=== PATIENT | female | born 1990 | race Hispanic/Latino ===

== ENCOUNTER 2019-06-17 13:43 | Emergency (ER) | payer BC ==
--- OUTSIDE RECORDS SUMMARY | 2019-06-17 13:48 | XMS REPORT ---
:1990 [facility] Address [address] [place] [address] [address] [address] Care Team Providers Name Role Phone DR JIMI AGUSTIN Unavailable Unavailable Problems This patient has no known problems. Allergies, Adverse Reactions, Alerts This patient has no known allergies or adverse reactions. Medications This patient has no known medications. Encounters Start End Encounter Admission Attending Care Care Encounter Date/Time Date/Time Type Type Clinicians Facility Department ID 2018-09-14 2018-09-14 Outpatient LIBBY BARRERA [facility] [id number] 04:03:00 07:00:00 JIMI
[2019-06-17] MEDS ORDERED: FAMOTIDINE 20 MG/2 ML VIAL IV ONE (14:39)
[2019-06-17] MEDS ORDERED: MORPHINE 4 MG/ML SYR ONE ×2 (14:39→15:48)
[2019-06-17] MEDS ORDERED: NA CHLORIDE 0.9% 1,000 ML ONE (14:39)
[2019-06-17] MEDS ORDERED: ONDANSETRON 4 MG/2 ML VIAL ONE (14:39)
[2019-06-17 14:51] LABS: Absolute Lymphocytes (CBC) 0.8 K/uL (0.7-4.9); Basophils % 0.2 % (0-1.3); Hematocrit 45.4 % (36.0-45.0); Lymphocytes % 5.6 % (15.3-44.8); MPV 8.7 fL (7.6-11.3)
--- NOTE | 2019-06-17 15:07 | RAD REPORT ---
EXAM DESCRIPTION: US - Abdomen Exam Limited - 06/17/2019 2:42 pm CLINICAL HISTORY: RUQ pain COMPARISON: No comparisons FINDINGS: The gallbladder demonstrates multiple gallstones. No pericholecystic fluid or gallbladder wall thickening. The common bile duct is mildly prominent measuring 7 mm. The liver demonstrates no findings of intrahepatic biliary dilatation. IMPRESSION: Cholelithiasis. Mildly prominent common bile duct. If the patient has clinical findings suggesting possible choledoch olithiasis, ERCP or MRCP would be suggested.
[2019-06-17 15:10] LABS: Albumin 4.3 g/dL (3.4-5.0); Bilirubin Direct 0.1 mg/dL (0-0.2); Bilirubin Total 0.6 mg/dL (0.2-1.0); Potassium 3.6 mmol/L (3.5-5.1); Protein, Total 9.2 g/dL (6.4-8.2)
[2019-06-17 15:17] LABS: Blood Morphology Comment NOT SEEN (NOT SEEN); Platelet Estimate ADEQ; Urine White Blood Cell Casts OK
--- NOTE | 2019-06-17 15:49 | RAD REPORT ---
EXAM DESCRIPTION: CTAbdomen Pelvis W Contrast - 06/17/2019 3:39 pm CLINICAL HISTORY: Abdominal pain. ABD PAIN COMPARISON: No comparisons TECHNIQUE: Biphasic CT imaging of the abdomen and pelvis was performed with 100 ml non-ionic IV cont rast. All CT scans are performed using dose optimization technique as appropriate and may include automated exposure control or mA/KV adjustment according to patient size. FINDINGS: The lung bases are clear. The liver demonstrates mild fatty infiltration. The spleen, pancreas, adrenal glands and kidneys are within normal limits. No bowel obstruction, free air, free fluid or abscess. 25 mm nonspecific fluid density structure in t he central abdomen may represent a jejunal diverticulum. The appendix is normal. No evidence of sign ificant lymphadenopathy. No suspicious bony findings. IMPRESSION: No acute intra-abdominal or pelvic finding. Mild fatty liver. No significant biliary dilatation.
[2019-06-17] MEDS ORDERED: PIPER/TAZO/NS 3.375gm 3.375 GM/100 ML BAG ONE (15:59)
--- NOTE | 2019-06-17 16:54 | EDPHYS ---
Physician Documentation [facility] Name: Margareth Calderón Age: 28 yrs Sex: Female : 1990 Arrival Date: 06/17/2019 Time: 13:47 Bed 23 Private MD: ED Physician Reinaldo Sheldon HPI: 06/17 18:13 This 28 yrs old Female presents to ER via Ambulatory with complaints of kdr Abdominal Pain. 18:13 The patient presents with abdominal pain in the right upper quadrant. Onset: The kdr symptoms/episode began/occurred suddenly, this morning, at 03:30. The symptoms do not radiate. Associated signs and symptoms: Pertinent positives: nausea and vomiting, Pertinent negatives: chest pain, constipation, diarrhea, dysuria, fever, headache, hematuria, palpitations, shortness of breath, vaginal discharge, vomiting, vomiting blood. The symptoms are described as achy, crampy, intermittent, shooting, steady, Pain resolved after the initial episode but then returned later in the morning when she went to work. Modifying factors: The symptoms are alleviated by nothing, the symptoms are aggravated by coughing, breathing deeply, movement, touching the area. Severity of pain: At its worst the pain was severe incapacitating just prior to arrival, in the emergency department the pain has improved mildly. The patient has not experienced similar symptoms in the past. The patient has not recently seen a physician. 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 - Coronavirus screen:: The patient has NOT traveled to [place] in the past 14 days. The patient has NOT had contact with known/suspected case of Coronavirus? Proceed with normal triage procedures. - Social history:: Smoking status: Patient denies any tobacco usage or history of. - Ebola Screening: : No symptoms or risks identified at this time. ROS: 18:13 Constitutional: Negative for fever, chills, and weight loss, Eyes: Negative for injury, kdr pain, redness, and discharge, ENT: Negative for injury, pain, and discharge, Neck: Negative for injury, pain, and swelling, Cardiovascular: Negative for chest pain, palpitations, and edema, Respiratory: Negative for shortness of breath, cough, wheezing, and pleuritic chest pain, Back: Negative for injury and pain, : Negative for injury, bleeding, discharge, and swelling, MS/Extremity: Negative for injury and deformity, Skin: Negative for injury, rash, and discoloration, Neuro: Negative for headache, weakness, numbness, tingling, and seizure activity. Psych: Negative for depression, anxiety, suicide ideation, homicidal ideation, and hallucinations, Allergy/Immunology: Negative for hives, rash, and allergies, Endocrine: Negative for neck swelling, polydipsia, polyuria, polyphagia, and marked weight changes, Hematologic/Lymphatic: Negative for swollen nodes, abnormal bleeding, and unusual bruising. 18:13 Abdomen/GI: Positive for abdominal pain, nausea and vomiting, nausea, vomiting, Negative for abdominal distension, anorexia, dysphagia, black/tarry stool, rectal pain, rectal bleeding, bowel incontinence. Exam: 18:13 Constitutional: This is a well developed, well nourished patient who is awake, alert, kdr and in no acute distress. Head/Face: Normocephalic, atraumatic. Eyes: Pupils equal round and reactive to light, extra-ocular motions intact. Lids and lashes normal. Conjunctiva and sclera are non-icteric and not injected. Cornea within normal limits. Periorbital areas with no swelling, redness, or edema. Neck: Trachea midline, no thyromegaly or masses palpated, and no cervical lymphadenopathy. Supple, full range of motion without nuchal rigidity, or vertebral point tenderness. No Meningismus. Chest/axilla: Normal chest wall appearance and motion. Nontender with no deformity. No lesions are appreciated. Cardiovascular: Regular rate and rhythm with a normal S1 and S2. No gallops, murmurs, or rubs. Normal PMI, no JVD. No pulse deficits. Respiratory: Lungs have equal breath sounds bilaterally, clear to auscultation and percussion. No rales, rhonchi or wheezes noted. No increased work of breathing, no retractions or nasal flaring. Back: No spinal tenderness. No costovertebral tenderness. Full range of motion. Skin: Warm, dry with normal turgor. Normal color with no rashes, no lesions, and no evidence of cellulitis. MS/ Extremity: Pulses equal, no cyanosis. Neurovascular intact. Full, normal range of motion. Neuro: Awake and alert, GCS 15, oriented to person, place, time, and situation. Cranial nerves II-XII grossly intact. Motor strength 5/5 in all extremities. Sensory grossly intact. Cerebellar exam normal. Normal gait. Psych: Awake, alert, with orientation to person, place and time. Behavior, mood, and affect are within normal limits. 18:13 Abdomen/GI: Inspection: obese Bowel sounds: active, all quadrants, Palpation: soft, moderate abdominal tenderness, in the anterior aspect of left lateral abdomen and left upper quadrant, Indicators: McBurney's point is not tender, Ramey's sign is positive. Vital Signs: 14:06 BP 121 / 80; Pulse 117; Resp 16; Temp 98.2; Pulse Ox 100% on R/A; Weight 83.91 kg; hb Height 5 ft. 3 in. (160.02 cm); Pain 9/10; 15:15 BP 126 / 62; Pulse 94; Resp 18; Pulse Ox 100% on R/A; wh 17:07 BP 126 / 87; Pulse 97; Resp 18; Pulse Ox 100% on R/A; wh 18:15 BP 126 / 79; Pulse 98; Resp 18; Temp 98.2; Pulse Ox 100% on R/A; wh 14:06 Body Mass Index 32.77 (83.91 kg, 160.02 cm) hb MDM: 15:55 Patient medically screened. kdr 18:13 Data reviewed: vital signs, nurses notes, lab test result(s), radiologic studies. kdr Counseling: I had a detailed discussion with the patient and/or guardian regarding: the historical points, exam findings, and any diagnostic results supporting the discharge/admit diagnosis, lab results, radiology results, the need for further work-up and treatment in the hospital. 06/17 14:21 Order name: Basic Metabolic Panel; Complete Time: 15: kdr 06/17 14:21 Order name: CBC with Diff; Complete Time: 15: kdr 06/17 14:21 Order name: Creatinine for Radiology; Complete Time: 15:21 kdr 06/17 14:21 Order name: Hepatic Function; Complete Time: 15:21 kdr 06/17 14:21 Order name: Lipase; Complete Time: 15: kdr 06/17 15:19 Order name: CBC Smear Scan; Complete Time: 15: EDMS 06/17 14:21 Order name: US Abdomen Limited; Complete Time: 17:43 kdr 06/17 14:21 Order name: CT Abd/Pelvis - IV Contrast Only; Complete Time: 17:43 kdr 06/17 14:21 Order name: IV Saline Lock; Complete Time: 14:42 kdr 06/17 14:21 Order name: Labs collected and sent; Complete Time: 14:42 kdr Administered Medications: 14:35 Drug: NS 0.9% 1000 ml Route: IV; Rate: 1 bolus; Site: left antecubital; 15:48 Follow up: Response: No adverse reaction; IV Status: Completed infusion 14:37 Drug: morphine 4 mg Route: IVP; Site: left antecubital; 15:48 Follow up: Response: No adverse reaction; RASS: Alert and Calm (0) 14:39 Drug: Pepcid 20 mg Route: IVP; Site: left antecubital; 15:49 Follow up: Response: No adverse reaction 14:41 Drug: Zofran 4 mg Route: IVP; Site: left antecubital; 15:49 Follow up: Response: No adverse reaction; Nausea is decreased 15:48 Drug: morphine 4 mg Route: IVP; Site: left antecubital; wh 17:06 Follow up: Response: No adverse reaction; Pain is decreased; RASS: Alert and Calm (0) 15:58 Drug: Zosyn 3.375 grams Route: IVPB; Infused Over: 60 mins; Site: left antecubital; 17:07 Follow up: Response: No adverse reaction; IV Status: Completed infusion 17:58 Drug: morphine 2 mg Route: IVP; Site: right antecubital; iw 18:27 Follow up: Response: No adverse reaction; Pain is decreased; RASS: Alert and Calm (0) 18:01 Not Given (Duplicate Order): morphine 1 mg IVP once; RASS on ADMIN: Combtv4, Very iw Agttd3, Agttd2, Rstlss1, AlertClm0, Drwsy-1, Lt Sdtn-2, Mod Sdtn-3, Dp Sdtn-4, UnArsble-5 18:07 CANCELLED (Duplicate Order): morphine 2 mg IVP once; (PAIN>8) RASS on ADMN: Combtv4, iw Very Agttd3, Agttd2, Rstlss1, AlertClm0, Drwsy-1, LtSdtn-2, ModSdtn-3, DpSdtn-4, UnArsble-5 x2 Disposition: 06/17/19 15:55 Transfer ordered to [facility]. Diagnosis are Cholelithiasis, Abdominal and pelvic pain. - Reason for transfer: Higher level of care. - Accepting physician is [facility] GI/Hospitalist. - Condition is Fair. - Problem is new. - Symptoms have improved. Signatures: Dispatcher [employer] EDMS Reinaldo Sheldon MD MD kdr Mary Morales RN RN iw Claire Fox RN RN Garth Chin Corrections: (The following items were deleted from the chart) 18:07 18:01 morphine 2 mg IVP once; (PAIN>8) RASS on ADMN: Combtv4, Very Agttd3, Agttd2, iw Rstlss1, AlertClm0, Drwsy-1, LtSdtn-2, ModSdtn-3, DpSdtn-4, UnArsble-5 x2 ordered. 18:07 18:02 morphine 2 mg IVP once; (PAIN>8) RASS on ADMN: Combtv4, Very Agttd3, Agttd2, iw Rstlss1, AlertClm0, Drwsy-1, LtSdtn-2, ModSdtn-3, DpSdtn-4, UnArsble-5 x2 given. 18:07 18:07 morphine 2 mg IVP once; (PAIN>8) RASS on ADMN: Combtv4, Very Agttd3, Agttd2, iw Rstlss1, AlertClm0, Drwsy-1, LtSdtn-2, ModSdtn-3, DpSdtn-4, UnArsble-5 x2 ordered. 18:28 15:55 06/17/2019 15:55 Transfer ordered to [facility]. Diagnosis is Cholelithiasis; Abdominal and pelvic pain. Reason for transfer: Higher level of care. Accepting physician is [facility] GI/Hospitalist. Condition is Fair. Problem is new. Symptoms have improved. kdr
--- NOTE | 2019-06-17 16:54 | ER ---
Nurse's Notes [facility] Name: Margareth Calderón Age: 28 yrs Sex: Female : 1990 Arrival Date: 06/17/2019 Time: 13:47 Bed 23 Private MD: Diagnosis: Cholelithiasis;Abdominal and pelvic pain Presentation: 06/17 14:03 Presenting complaint: She woke at 0230 with substernal chest pain, now pain has moved hb to RUQ and radiates to right mid back. Also c/o nausea. Transition of care: patient was not received from another setting of care. Onset of symptoms was June 17, 2019. Risk Assessment: Do you want to hurt yourself or someone else? Patient reports no desire to harm self or others. Care prior to arrival: DayQuil at 0800. 14:03 Method Of Arrival: Ambulatory hb 14:03 Acuity: MIRELA 3 hb 14:10 Initial Sepsis Screen: Does the patient meet any 2 criteria? HR > 90 bpm. Does the patient have a suspected source of infection? Yes: Acute abdominal pain. 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 - Coronavirus screen:: The patient has NOT traveled to [place] in the past 14 days. The patient has NOT had contact with known/suspected case of Coronavirus? Proceed with normal triage procedures. - Social history:: Smoking status: Patient denies any tobacco usage or history of. - Ebola Screening: : No symptoms or risks identified at this time. Screenin:10 Abuse screen: Denies threats or abuse. Denies injuries from another. Nutritional screening: No deficits noted. Tuberculosis screening: No symptoms or risk factors identified. Fall Risk None identified. Assessment: 14:10 General: Appears in no apparent distress. Behavior is calm, cooperative, appropriate for age. Pain: Complains of pain in right upper quadrant and right lower quadrant Pain does not radiate. Pain currently is 8 out of 10 on a pain scale. Quality of pain is described as sharp, Pain began 1 day ago. Neuro: Level of Consciousness is awake, alert, obeys commands, Oriented to person, place, time, situation, Appropriate for age. Cardiovascular: Heart tones S1 S2. Respiratory: Airway is patent Respiratory effort is even, unlabored, Respiratory pattern is regular, symmetrical, Breath sounds are clear bilaterally. GI: Abdomen is flat, non-distended, Bowel sounds present X 4 quads. Abd is soft Abdomen is tender to palpation in right upper quadrant and right lower quadrant. : No signs and/or symptoms were reported regarding the genitourinary system. EENT: No signs and/or symptoms were reported regarding the EENT system. Derm: Skin is intact, is healthy with good turgor, Skin is pink, warm \T\ dry. normal. Musculoskeletal: Circulation, motion, and sensation intact. 15:12 Reassessment: Patient appears in no apparent distress at this time. No changes from previously documented assessment. Patient and/or family updated on plan of care and expected duration. Pain level reassessed. 16:30 Reassessment: Patient appears in no apparent distress at this time. No changes from previously documented assessment. Patient and/or family updated on plan of care and expected duration. Pain level reassessed. Patient is alert, oriented x 3, equal unlabored respirations, skin warm/dry/pink. MD explained POC need for transfer for higher level of care Patient states feeling better. 17:45 Reassessment: Report given to Ms. Francis NARAYAN. 17:55 Reassessment: Patient appears in no apparent distress at this time. Patient and/or iw family updated on plan of care and expected duration. Pain level reassessed. Patient is alert, oriented x 3, equal unlabored respirations, skin warm/dry/pink. pt c/o headache and abd pain , notified, new orders given, pt medicated with 2 mg morphine IVP,awaiting EMS transport to [facility]. Vital Signs: 14:06 BP 121 / 80; Pulse 117; Resp 16; Temp 98.2; Pulse Ox 100% on R/A; Weight 83.91 kg; hb Height 5 ft. 3 in. (160.02 cm); Pain 9/10; 15:15 BP 126 / 62; Pulse 94; Resp 18; Pulse Ox 100% on R/A; wh 17:07 BP 126 / 87; Pulse 97; Resp 18; Pulse Ox 100% on R/A; wh 18:15 BP 126 / 79; Pulse 98; Resp 18; Temp 98.2; Pulse Ox 100% on R/A; wh 14:06 Body Mass Index 32.77 (83.91 kg, 160.02 cm) hb ED Course: 13:47 Patient arrived in ED. mr 13:50 Reinaldo Sheldon MD is Attending Physician. kdr 14:05 Triage completed. hb 14:06 Arm band placed on. hb 14:10 Patient has correct armband on for positive identification. Bed in low position. Call wh light in reach. Side rails up X 1. Pulse ox on. NIBP on. 14:21 Garth Chin is Primary Nurse. wh 14:30 Inserted saline lock: 20 gauge in left antecubital area, using aseptic technique. Blood wh collected. 14:50 US Abdomen Limited In Process Unspecified. EDMS 15:42 CT Abd/Pelvis - IV Contrast Only In Process Unspecified. EDMS 18:27 No provider procedures requiring assistance completed. Patient transferred, IV remains wh in place. Administered Medications: 14:35 Drug: NS 0.9% 1000 ml Route: IV; Rate: 1 bolus; Site: left antecubital; 15:48 Follow up: Response: No adverse reaction; IV Status: Completed infusion 14:37 Drug: morphine 4 mg Route: IVP; Site: left antecubital; 15:48 Follow up: Response: No adverse reaction; RASS: Alert and Calm (0) 14:39 Drug: Pepcid 20 mg Route: IVP; Site: left antecubital; 15:49 Follow up: Response: No adverse reaction 14:41 Drug: Zofran 4 mg Route: IVP; Site: left antecubital; 15:49 Follow up: Response: No adverse reaction; Nausea is decreased 15:48 Drug: morphine 4 mg Route: IVP; Site: left antecubital; 17:06 Follow up: Response: No adverse reaction; Pain is decreased; RASS: Alert and Calm (0) 15:58 Drug: Zosyn 3.375 grams Route: IVPB; Infused Over: 60 mins; Site: left antecubital; 17:07 Follow up: Response: No adverse reaction; IV Status: Completed infusion 17:58 Drug: morphine 2 mg Route: IVP; Site: right antecubital; iw 18:27 Follow up: Response: No adverse reaction; Pain is decreased; RASS: Alert and Calm (0) 18:01 Not Given (Duplicate Order): morphine 1 mg IVP once; RASS on ADMIN: Combtv4, Very iw Agttd3, Agttd2, Rstlss1, AlertClm0, Drwsy-1, Lt Sdtn-2, Mod Sdtn-3, Dp Sdtn-4, UnArsble-5 18:07 CANCELLED (Duplicate Order): morphine 2 mg IVP once; (PAIN>8) RASS on ADMN: Combtv4, iw Very Agttd3, Agttd2, Rstlss1, AlertClm0, Drwsy-1, LtSdtn-2, ModSdtn-3, DpSdtn-4, UnArsble-5 x2 Outcome: 15:55 ER care complete, transfer ordered by . [facility] 18:27 Transferred by ground EMS to [facility], Transfer form completed. X-rays sent w/ patient. Note: Report given to [facility] and Ms Francis NARAYAN 18:27 Condition: stable 18:27 Instructed on the need for transfer. 18:28 Patient left the ED. Signatures: Dispatcher [employer] EDMS Reinaldo Sheldon MD MD [facility], Ginny mr Mary Morales RN RN Claire Fox RN RN Garth Chin Corrections: (The following items were deleted from the chart) 15:14 14:10 Initial Sepsis Screen: Does the patient meet any 2 criteria? No. Patient's initial sepsis screen is negative. Does the patient have a suspected source of infection? Yes: Acute abdominal pain 18:07 18:01 morphine 2 mg IVP in right antecubital iw
[2019-06-17] MEDS ORDERED: MORPHINE 2 MG/ML SYR ONE (18:00)
[2019-06-17 18:55] VITALS: TEMP 98.2; O2SAT 100
[2019-06-17 18:59] VITALS: BP 126/79
== END 2019-06-17 18:28 | disposition short-term general hospital (02) ==
LOC: ER 13:43
DX: K80.20 Calculus of gallbladder without cholecystitis without obstruction (principal); R10.2 Pelvic and perineal pain; Z88.5 Allergy status to narcotic agent
CPT/HCPCS: 96365; 96361; 85025; 80048; 36415; 80076; 83690; 74177; 76705; 96375; 99285; Q9967; J2543; J2270; J7030; J2405

== ENCOUNTER 2019-07-09 22:00 | Emergency (ER) | payer BC ==
--- OUTSIDE RECORDS SUMMARY | 2019-07-09 22:04 | XMS REPORT ---
:1990 [facility] Address [address] [place] [address] [address]. [address] [place] [address] Care Team Providers Name Role Phone MONITINO VALLE BRET Unavailable Unavailable DR JIMI AGUSTIN Unavailable Unavailable Problems This patient has no known problems. Allergies, Adverse Reactions, Alerts This patient has no known allergies or adverse reactions. Medications This patient has no known medications. Encounters Start End Encounter Admission Attending Care Care Encounter Date/Time Date/Time Type Type Clinicians Facility Department ID 2018-09-14 2018-09-14 Outpatient C [facility] [id number] 04:03:00 07:00:00 JIMI Results Test Description Test Time Test Comments Text Results Atomic Results Result Comments BLOOD CULTURE 2019-06-23 07:00:00 Test Item Value Reference Range Comments CULTURE (BEAKER) (test wqqm=4831) No growth in 5 days BLOOD [id number] 07:00:00 Test Item Value Reference Range Comments CULTURE (BEAKER) (test oyul=5230) No growth in 5 days TISSUE [id number] 17:22:00Surgical Pathology Report Case: [id number] Authorizing Provider: Carin Hays MD Collected: 06/19/2019 1416 Ordering Location: [facility] PERIOPERATIVE Received: 06/19/2019 1554 SERVICES Pathologist: Izzy Benson MD Specimen: Gallbladder GALLBLADDER,LAPAROSCOPIC CHOLECYSTECTOMY: - CHRONIC CHOLECYSTITIS - CHOLELITHIASIS - CHOLESTEROLOSIS - CYSTIC DUCT MARGIN, UNREMARKABLE - NO DYSPLASIA OR MALIGNANCY SEEN Signing Pathologist Direct Phone Line: [phone] at 5: 22 [id number] and postoperative diagnosis: Calculous cholecystitis Gallbladder Specimen A is received labeled with the patient's name, accession number, and "gallbladder. Received in formalin is a 7.2 x 2.8 x 1.5 cm intact gallbladder with 1.0 cm in length x 0.7 cm in diameter cystic duct. No lymph nodes are adherent to the cystic duct neck. The serosal surface is bright-pink, smooth with punctate areas of hemorrhage.On opening, the lumen contains approximately 10 mL of brown, viscous bile and numerous yellow bosselated, ovoid and crushable calculi ranging from less than 0.1 cm to 0.4 cm in greatest dimension. The mucosa is bright-brown and velvety. The thickness of the wall measures 0.1 cm. Numerous calculiare present within the cystic duct. Roadway Designer sections submitted. Ink code: Cystic duct blue; hepatic surface black.Section code: A1 cystic duct and gallbladder wall. A2 gallbladder wall. LY/bc PERFORMEDPOCT-GLUCOSE [id number] 09:32:00 Test Item Value Reference Range Comments POC-GLUCOSE METER (BEAKER) 99 mg/dL 70-110 : TESTED AT [address] (test yzvr=8562) [facility], [id number]: Sexual Abuse Counsellor/Director Plans [id number] for GREGORY, BIANCA POCT-GLUCOSE [id number] 09:27:00 Test Item Value Reference Range Comments POC-GLUCOSE METER (BEAKER) 107 mg/dL 70-110 : TESTED AT [address] (test kazr=0116) [facility], [id number]: Sexual Abuse Counsellor/Director Plans [id number] for GREGORY, BIANCA HEPATIC FUNCTION [id number] 05:13:00 Test Item Value Reference Range Comments TOTAL PROTEIN (BEAKER) (test dnvk=175) 6.8 gm/dL 6.0-8.3 ALBUMIN (BEAKER) (test uxrh=4134) 3.7 g/dL 3.5-5.0 BILIRUBIN TOTAL (BEAKER) (test vqae=459) 0.8 mg/dL 0.2-1.2 BILIRUBIN DIRECT (BEAKER) (test athn=705) 0.5 mg/dL 0.1-0.5 ALKALINE PHOSPHATASE (BEAKER) (test tlfl=982) 122 U/L 40-150 AST (SGOT) (BEAKER) (test uihf=857) 319 U/L 5-34 ALT (SGPT) (BEAKER) (test eggj=373) 725 U/L 6-55 Sexual Abuse Counsellor LEONIDAS - BHARTI LBASIC METABOLIC [id number] 05:13:00 Test Item Value Reference Range Comments SODIUM (BEAKER) (test 132 meq/L 136-145 hkja=376) POTASSIUM (BEAKER) (test 4.2 meq/L 3.5-5.1 ktfx=538) CHLORIDE (BEAKER) (test 104 meq/L 98-107 ftdk=201) CO2 (BEAKER) (test 20 meq/L 22-29 rxwr=291) BLOOD UREA NITROGEN 6 mg/dL 7-21 (BEAKER) (test whye=253) CREATININE (BEAKER) (test 0.66 mg/dL 0.57-1.25 ikjg=786) GLUCOSE RANDOM (BEAKER) 106 mg/dL 70-105 (test kgee=919) CALCIUM (BEAKER) (test 8.8 mg/dL 8.4-10.2 zetg=236) EGFR (BEAKER) (test 105 mL/min/1.73 sq m ESTIMATED GFR IS NOT posb=3282) ACCURATE CREATININE CLEARANCE IN PREDICTING GLOMERULAR FILTRATION RATE. ESTIMATED GFR IS NOT APPLICABLE FOR DIALYSIS PATIENTS. Sexual Abuse Counsellor ID - BHARTI LCBC W/PLT COUNT & AUTO [id number] 04:20:00 Test Item Value Reference Range Comments WHITE BLOOD CELL COUNT (BEAKER) (test uyyj=009) 9.6 K/ L 3.5-10.5 RED BLOOD CELL COUNT (BEAKER) (test uevq=805) 4.30 M/ L 3.93-5.22 HEMOGLOBIN (BEAKER) (test fwdu=093) 12.3 GM/DL 11.2-15.7 HEMATOCRIT (BEAKER) (test vtqu=154) 37.7 % 34.1-44.9 MEAN CORPUSCULAR VOLUME (BEAKER) (test mobf=945) 87.7 fL 79.4-94.8 MEAN CORPUSCULAR HEMOGLOBIN (BEAKER) (test 28.6 pg 25.6-32.2 symr=529) MEAN CORPUSCULAR HEMOGLOBIN CONC (BEAKER) (test 32.6 GM/DL 32.2-35.5 yude=705) RED CELL DISTRIBUTION WIDTH (BEAKER) (test 12.6 % 11.7-14.4 jioq=396) PLATELET COUNT (BEAKER) (test mwze=918) 281 K/CU MM 150-450 MEAN PLATELET VOLUME (BEAKER) (test fecd=404) 10.0 fL 9.4-12.3 NUCLEATED RED BLOOD CELLS (BEAKER) (test 0 /100 WBC 0-0 zwuj=060) NEUTROPHILS RELATIVE PERCENT (BEAKER) (test 82 % tter=579) LYMPHOCYTES RELATIVE PERCENT (BEAKER) (test 10 % livm=602) MONOCYTES RELATIVE PERCENT (BEAKER) (test 8 % jxht=824) EOSINOPHILS RELATIVE PERCENT (BEAKER) (test 0 % pdym=966) BASOPHILS RELATIVE PERCENT (BEAKER) (test 0 % cjgh=227) NEUTROPHILS ABSOLUTE COUNT (BEAKER) (test 7.82 K/ L 1.56-6.13 ldvs=298) LYMPHOCYTES ABSOLUTE COUNT (BEAKER) (test 0.97 K/ L 1.18-3.74 krin=202) MONOCYTES ABSOLUTE COUNT (BEAKER) (test 0.73 K/ L 0.24-0.36 pwyu=640) EOSINOPHILS ABSOLUTE COUNT (BEAKER) (test 0.00 K/ L 0.04-0.36 lerc=482) BASOPHILS ABSOLUTE COUNT (BEAKER) (test 0.02 K/ L 0.01-0.08 tsga=068) IMMATURE GRANULOCYTES-RELATIVE PERCENT (BEAKER) 0 % 0-1 (test wgoe=1691) FL, FLUORO, NON-SPECIFIC, UP TO 1 [id number] 14:32:00Reason for exam:-> CholangiogramFINAL REPORT A fluoroscopic unit was utilized for a procedure performed in the operating room. No interpretation was requested. Please refer to the operative report regarding findings. Please refer to PACS for patient radiation dose information. Signed: JR River Robert MDReport Verified Date/Time: 06/19/2019 14:32:42 Reading Location: [facility] Radiology Reading Room POCT-GLUCOSE [id number] 07:47:00 Test Item Value Reference Range Comments POC-GLUCOSE METER (BEAKER) 90 mg/dL 70-110 : TESTED AT [facility] [address] [place] [address] (test ugji=2464) [facility], [address]: Sexual Abuse Counsellor/Director Plans [id number] for [place] HEPATIC FUNCTION [id number] 04:53:00 Test Item Value Reference Range Comments TOTAL PROTEIN (BEAKER) (test fxpa=834) 6.9 gm/dL 6.0-8.3 ALBUMIN (BEAKER) (test tmxh=1287) 3.8 g/dL 3.5-5.0 BILIRUBIN TOTAL (BEAKER) (test epdx=298) 1.3 mg/dL 0.2-1.2 BILIRUBIN DIRECT (BEAKER) (test szpc=747) 1.0 mg/dL 0.1-0.5 ALKALINE PHOSPHATASE (BEAKER) (test sdrh=652) 125 U/L 40-150 AST (SGOT) (BEAKER) (test wdis=832) 469 U/L 5-34 ALT (SGPT) (BEAKER) (test fpao=130) 624 U/L 6-55 Sexual Abuse Counsellor ID - DBBASIC METABOLIC [id number] 04:53:00 Test Item Value Reference Range Comments SODIUM (BEAKER) (test 136 meq/L 136-145 gmwv=699) POTASSIUM (BEAKER) (test 3.9 meq/L 3.5-5.1 irow=943) CHLORIDE (BEAKER) (test 105 meq/L 98-107 kpda=724) CO2 (BEAKER) (test 23 meq/L 22-29 xbda=055) BLOOD UREA NITROGEN 7 mg/dL 7-21 (BEAKER) (test ubrl=734) CREATININE (BEAKER) (test 0.70 mg/dL 0.57-1.25 miku=554) GLUCOSE RANDOM (BEAKER) 103 mg/dL 70-105 (test glsp=967) CALCIUM (BEAKER) (test 9.0 mg/dL 8.4-10.2 wahx=090) EGFR (BEAKER) (test 98 mL/min/1.73 sq m ESTIMATED GFR IS NOT bsbo=9612) ACCURATE CREATININE CLEARANCE IN PREDICTING GLOMERULAR FILTRATION RATE. ESTIMATED GFR IS NOT APPLICABLE FOR DIALYSIS PATIENTS. Sexual Abuse Counsellor ID - DBPROTHROMBIN [id number] 04:47:00 Test Item Value Reference Range Comments PROTIME (BEAKER) (test fbaw=294) 13.5 seconds 11.9-14.2 INR (BEAKER) (test ovzl=345) 1.1 <=5.9 Effective 09/19/2018: PT Reference Range ChangeNew: 11.9-14.2 Previous: 11.7- 14.7RECOMMENDED COUMADIN/WARFARIN INR THERAPY RANGESSTANDARD DOSE: 2.0-3.0 Includes: PROPHYLAXIS for venous thrombosis, systemic embolization; TREATMENT for venous thrombosis and/or pulmonary embolus.HIGH RISK: Target INR is2.5-3.5 for patients wiht mechanical heart valves.CBC W/PLT COUNT & AUTO [id number] 04:27:00 Test Item Value Reference Range Comments WHITE BLOOD CELL COUNT (BEAKER) (test uuuz=367) 5.7 K/ L 3.5-10.5 RED BLOOD CELL COUNT (BEAKER) (test yrcu=833) 4.51 M/ L 3.93-5.22 HEMOGLOBIN (BEAKER) (test prik=013) 12.7 GM/DL 11.2-15.7 HEMATOCRIT (BEAKER) (test nzfy=941) 39.3 % 34.1-44.9 MEAN CORPUSCULAR VOLUME (BEAKER) (test gvyk=697) 87.1 fL 79.4-94.8 MEAN CORPUSCULAR HEMOGLOBIN (BEAKER) (test 28.2 pg 25.6-32.2 hrbc=635) MEAN CORPUSCULAR HEMOGLOBIN CONC (BEAKER) (test 32.3 GM/DL 32.2-35.5 jlnj=027) RED CELL DISTRIBUTION WIDTH (BEAKER) (test 12.7 % 11.7-14.4 rzkb=670) PLATELET COUNT (BEAKER) (test khct=260) 291 K/CU MM 150-450 MEAN PLATELET VOLUME (BEAKER) (test zeyd=673) 10.1 fL 9.4-12.3 NUCLEATED RED BLOOD CELLS (BEAKER) (test 0 /100 WBC 0-0 uqzg=866) NEUTROPHILS RELATIVE PERCENT (BEAKER) (test 51 % fxur=971) LYMPHOCYTES RELATIVE PERCENT (BEAKER) (test 34 % uagb=204) MONOCYTES RELATIVE PERCENT (BEAKER) (test 11 % gfhu=483) EOSINOPHILS RELATIVE PERCENT (BEAKER) (test 3 % ucbi=844) BASOPHILS RELATIVE PERCENT (BEAKER) (test 1 % pxvr=887) NEUTROPHILS ABSOLUTE COUNT (BEAKER) (test 2.93 K/ L 1.56-6.13 omcu=804) LYMPHOCYTES ABSOLUTE COUNT (BEAKER) (test 1.97 K/ L 1.18-3.74 xwjr=694) MONOCYTES ABSOLUTE COUNT (BEAKER) (test 0.64 K/ L 0.24-0.36 mxsd=167) EOSINOPHILS ABSOLUTE COUNT (BEAKER) (test 0.15 K/ L 0.04-0.36 lzoh=015) BASOPHILS ABSOLUTE COUNT (BEAKER) (test 0.04 K/ L 0.01-0.08 stjx=667) IMMATURE GRANULOCYTES-RELATIVE PERCENT (BEAKER) 0 % 0-1 (test jnul=1821) POCT-GLUCOSE [id number] 00:56:00 Test Item Value Reference Range Comments POC-GLUCOSE METER (BEAKER) 106 mg/dL 70-110 : Pt. on IV insulin: TESTED AT (test ckhr=8527) [facility] [address] [facility], [address]: Sexual Abuse Counsellor/Director Plans [id number] for GREGORY BIANCA POCT-GLUCOSE [id number] 18:21:00 Test Item Value Reference Range Comments POC-GLUCOSE METER (BEAKER) 87 mg/dL 70-110 : TESTED AT [address] (test bcht=7374) [facility], [id number]: Sexual Abuse Counsellor/Director Plans [id number] for MATA LEONARD MR, ABDOMEN, [id number] 17:53:00Anesthesia:->NoneFINAL REPORT MR Abdomen dated 06/18/2019 Comment: Multiplanar T1 and T2-weighted images, respiratory triggered and breath-hold MRCP sequences were obtained. 3- D reconstruction ofthe abdomen was performed for better evaluation of the biliary tree. Gallbladder is minimally distended. Multiple small gallstones are present. No gallbladder wall thickening or pericholecystic fluid collections present. MRCP demonstrates normal caliber intra and extra hepatic biliary ducts. No filling defect is seen in the biliary ducts to suggest choledocholithiasis. Common bile duct measures approximately 4 mm in size. Pancreatic duct is normal in caliber. Liver is normal in size without focal abnormality. Liver is suboptimally evaluated on the MRCP sequences. Spleen is normal in size. Pancreas and adrenals are unremarkable. Both kidneys are normal in size. Impression:1. Cholelithiasis.2. No choledocholithiasis or biliary dilatation. Signed: Chasity Hernandez MDReport Verified Date/Time: 06/18/201917:53: 52 Reading Location: [facility] C013Y CT Body Reading Room PREGNANCY SCREEN, [id number] 06:24:00 Test Item Value Reference Range Comments TEST URINE (BEAKER) (test mfng=694) Negative BASIC METABOLIC [id number] 02:54:00 Test Item Value Reference Range Comments SODIUM (BEAKER) (test 135 meq/L 136-145 vlcy=701) POTASSIUM (BEAKER) (test 4.1 meq/L 3.5-5.1 uexg=242) CHLORIDE (BEAKER) (test 102 meq/L 98-107 okjx=161) CO2 (BEAKER) (test 25 meq/L 22-29 mziv=414) BLOOD UREA NITROGEN 7 mg/dL 7-21 (BEAKER) (test oexf=839) CREATININE (BEAKER) (test 0.78 mg/dL 0.57-1.25 hiiv=772) GLUCOSE RANDOM (BEAKER) 111 mg/dL 70-105 (test hggt=160) CALCIUM (BEAKER) (test 9.7 mg/dL 8.4-10.2 ywaa=364) EGFR (BEAKER) (test 87 mL/min/1.73 sq m ESTIMATED GFR IS NOT sfka=5382) ACCURATE CREATININE CLEARANCE IN PREDICTING GLOMERULAR FILTRATION RATE. ESTIMATED GFR IS NOT APPLICABLE FOR DIALYSIS PATIENTS. Sexual Abuse Counsellor ID - CESAR MPROTHROMBIN [id number] 02:51:00 Test Item Value Reference Range Comments PROTIME (BEAKER) (test khdj=100) 14.1 seconds 11.9-14.2 INR (BEAKER) (test lova=676) 1.1 <=5.9 Effective 09/19/2018: PT Reference Range ChangeNew: 11.9-14.2 Previous: 11.7- 14.7RECOMMENDED COUMADIN/WARFARIN INR THERAPY RANGESSTANDARD DOSE: 2.0-3.0 Includes: PROPHYLAXIS for venous thrombosis, systemic embolization; TREATMENT for venous thrombosis and/or pulmonary embolus.HIGH RISK: Target INR is2.5-3.5 for patients wiht mechanical heart valves.CBC W/PLT COUNT & AUTO [id number] 02:46:00 Test Item Value Reference Range Comments WHITE BLOOD CELL COUNT (BEAKER) (test wqax=561) 11.7 K/ L 3.5-10.5 RED BLOOD CELL COUNT (BEAKER) (test jhrp=865) 4.56 M/ L 3.93-5.22 HEMOGLOBIN (BEAKER) (test gbdf=935) 13.2 GM/DL 11.2-15.7 HEMATOCRIT (BEAKER) (test zekc=691) 39.2 % 34.1-44.9 MEAN CORPUSCULAR VOLUME (BEAKER) (test pybi=906) 86.0 fL 79.4-94.8 MEAN CORPUSCULAR HEMOGLOBIN (BEAKER) (test 28.9 pg 25.6-32.2 mkjx=359) MEAN CORPUSCULAR HEMOGLOBIN CONC (BEAKER) (test 33.7 GM/DL 32.2-35.5 hzxc=957) RED CELL DISTRIBUTION WIDTH (BEAKER) (test 12.7 % 11.7-14.4 tqdo=962) PLATELET COUNT (BEAKER) (test spfj=824) 332 K/CU MM 150-450 MEAN PLATELET VOLUME (BEAKER) (test bkoi=625) 9.8 fL 9.4-12.3 NUCLEATED RED BLOOD CELLS (BEAKER) (test 0 /100 WBC 0-0 yyuz=600) NEUTROPHILS RELATIVE PERCENT (BEAKER) (test 79 % tlis=380) LYMPHOCYTES RELATIVE PERCENT (BEAKER) (test 14 % svch=625) MONOCYTES RELATIVE PERCENT (BEAKER) (test 6 % ccec=712) EOSINOPHILS RELATIVE PERCENT (BEAKER) (test 0 % mmcf=979) BASOPHILS RELATIVE PERCENT (BEAKER) (test 0 % gbxw=096) NEUTROPHILS ABSOLUTE COUNT (BEAKER) (test 9.23 K/ L 1.56-6.13 kjfb=668) LYMPHOCYTES ABSOLUTE COUNT (BEAKER) (test 1.67 K/ L 1.18-3.74 orzl=032) MONOCYTES ABSOLUTE COUNT (BEAKER) (test 0.68 K/ L 0.24-0.36 jqul=357) EOSINOPHILS ABSOLUTE COUNT (BEAKER) (test 0.02 K/ L 0.04-0.36 rgmz=489) BASOPHILS ABSOLUTE COUNT (BEAKER) (test 0.03 K/ L 0.01-0.08 gssw=468) IMMATURE GRANULOCYTES-RELATIVE PERCENT (BEAKER) 0 % 0-1 (test ywhq=6210) HEPATIC FUNCTION [id number] 02:42:00 Test Item Value Reference Range Comments TOTAL PROTEIN (BEAKER) (test pbxj=086) 7.4 gm/dL 6.0-8.3 ALBUMIN (BEAKER) (test mtje=4728) 4.1 g/dL 3.5-5.0 BILIRUBIN TOTAL (BEAKER) (test whki=295) 0.7 mg/dL 0.2-1.2 BILIRUBIN DIRECT (BEAKER) (test bjed=795) 0.4 mg/dL 0.1-0.5 ALKALINE PHOSPHATASE (BEAKER) (test rjnr=030) 68 U/L 40-150 AST (SGOT) (BEAKER) (test hcss=377) 72 U/L 5-34 ALT (SGPT) (BEAKER) (test zqoi=396) 159 U/L 6-55 Sexual Abuse Counsellor LEONIDAS Wolfe
[2019-07-09] MEDS ORDERED: DIPHENOX/ATROP SULF 1 TAB PO ONE (23:23)
[2019-07-09] MEDS ORDERED: NA CHLORIDE 0.9% 1,000 ML ONE (23:26)
[2019-07-09 23:36] LABS: Basophils % 0.2 % (0-1.3); Hematocrit 40.5 % (36.0-45.0); Lymphocytes % 13.7 % (15.3-44.8); MPV 9.1 fL (7.6-11.3); RBC Red Blood Cell Count 4.74 M/uL (3.86-4.86)
[2019-07-09 23:51] LABS: ALT/SGPT 32 U/L (12-78); AST/SGOT 16 U/L (15-37); Albumin 3.5 g/dL (3.4-5.0); Alkaline Phosphatase 65 U/L (45-117); BUN Blood Urea Nitrogen 7 mg/dL (7-18); Bicarbonate 23 mmol/L (21-32); Bilirubin Direct < 0.1 mg/dL (0-0.2); Bilirubin Total 0.4 mg/dL (0.2-1.0); Glucose Level 105 mg/dL (74-106); Lipase 69 U/L (73-393); Potassium 3.2 mmol/L (3.5-5.1); Protein, Total 7.8 g/dL (6.4-8.2); Sodium Level 136 mmol/L (136-145)
[2019-07-09 23:55] LABS: Urine Blood TRACE (NEG); Urine Glucose NEGATIVE (NEG); Urine Protein TRACE (NEG); Urine Specific Gravity >1.030 (1.005-1.030)
--- NOTE | 2019-07-10 00:42 | ER ---
Nurse's Notes [facility] Name: Margareth Calderón Age: 28 yrs Sex: Female : 1990 Arrival Date: 07/09/2019 Time: 22:30 Bed 15 Private MD: Diagnosis: Diarrhea, unspecified;Dehydration Presentation: 07/08 22:32 Chief complaint: Patient states: Patient states pain to chest, and nausea, "I've had lp1 explosive diarrhea all day"; States similar symptoms when she had problems with her gallbladder, cholecystectomy done 06/20/[address] [facility]; Symptoms began this morning. Coronavirus screen: The patient has NOT traveled to a country currently being monitored by the CDC within the last 14 days. The patient has NOT had contact with any known and/or suspected case of coronavirus. Ebola Screen: No symptoms or risks identified at this time. Risk Assessment: Do you want to hurt yourself or someone else? Patient reports no desire to harm self or others. 22:32 Method Of Arrival: Ambulatory lp1 22:32 Acuity: MIRELA 3 lp1 22:37 Initial Sepsis Screen: Does the patient meet any 2 criteria? No. Patient's initial lp1 sepsis screen is negative. Does the patient have a suspected source of infection? No. Patient's initial sepsis screen is negative. CLIENT RELATIONSHIP CONSULTANT: 22:39 LMP 06/13/2019 lp1 Historical: - Allergies: 22:37 HYDROCODONE (Vomiting); lp1 - Home Meds: 22:37 Prilosec Oral [Active]; Vyvanse oral oral [Active]; control [Active]; lp1 - PMHx: 22:37 None; lp1 - PSHx: 22:37 Cholecystectomy; lp1 - Immunization history:: Adult Immunizations up to date. - Social history:: Smoking status: Patient denies any tobacco usage or history of. Screenin:41 Abuse screen: Denies threats or abuse. Denies injuries from another. Nutritional ls4 screening: No deficits noted. Tuberculosis screening: No symptoms or risk factors identified. Fall Risk None identified. Assessment: 22:37 General: Appears uncomfortable, Behavior is combative, swearing at nurse because she ls4 doesn't like needles. pt asked to refrain from swearing and lashing out at staff. . Pain: Complains of pain in epigastric area, right upper quadrant and right lower quadrant Pain currently is 10 out of 10 on a pain scale. Quality of pain is described as crampy, Pain began gradually. Neuro: No deficits noted. Cardiovascular: No deficits noted. Respiratory: No deficits noted. GI: Bowel sounds hyperactive in right upper quadrant, left upper quadrant, right lower quadrant and left lower quadrant Abd is soft X 4 quads Abdomen is tender to palpation X 4 quads. Reports diarrhea. Vital Signs: 22:37 BP 102 / 79; Pulse 100; Resp 18; Temp 98.4(O); Pulse Ox 99% on R/A; Weight 83.91 kg lp1 (R); Height 5 ft. 3 in. (160.02 cm); Pain 9/10; 22:37 Body Mass Index 32.77 (83.91 kg, 160.02 cm) lp1 ED Course: 22:30 Patient arrived in ED. ag3 22:36 Triage completed. lp1 22:37 Arm band placed on. lp1 22:41 Benjie Ding MD is Attending Physician. tw4 22:41 Patient has correct armband on for positive identification. Bed in low position. Call ls4 light in reach. Side rails up X 1. Pulse ox on. NIBP on. Warm blanket given. Verbal reassurance given. Diet: Patient is NPO. 22:41 No provider procedures requiring assistance completed. Initial lab(s) drawn, by tn, ls4 sent to lab. Urine collected: clean catch specimen, clear, EKG done, by ED staff, reviewed by Benjie Ding MD. Inserted saline lock: 20 gauge in right antecubital area, using aseptic technique. Blood collected. 22:43 Jen Sow, RN is Primary Nurse. ls4 03 00:57 IV discontinued, intact, bleeding controlled, No redness/swelling at site. Pressure ls4 dressing applied. 00:57 STOOL SAMPLE COLLECTED AND SENT TO LAB. ls4 Administered Medications: 07/08 23:15 Drug: LoMOTIL 2 tabs Route: PO; ls4 23:30 Drug: NS 0.9% 1000 ml Route: IV; Rate: 1 bolus; Site: right antecubital; ls4 03 00:30 Follow up: IV Status: Completed infusion; IV Intake: 1000ml ls4 00:50 Drug: Potassium Effervescent Tablet 25 mEq Route: PO; ls4 01:24 Follow up: Response: No adverse reaction ls4 01:24 Not Given (Patient Refused): Bentyl 20 mg PO once ls4 Intake: 00:30 IV: 1000ml; Total: 1000ml. ls4 Outcome: 00:41 Discharge ordered by . tw4 01:26 Discharged to home ambulatory. ls4 01:26 Discharge instructions given to patient, family, Instructed on discharge instructions, follow up and referral plans. medication usage, Demonstrated understanding of instructions, follow-up care, medications, Prescriptions given X 1. 01:29 Patient left the ED. lp1 Signatures: Maria Esther Kapoor RN RN lp1 Benjie Ding MD MD tw4 Lisa Woody Lisa, RN RN ls4
--- NOTE | 2019-07-10 00:42 | EDPHYS ---
Physician Documentation [facility] Name: Margareth Calderón Age: 28 yrs Sex: Female : 1990 Arrival Date: 07/09/2019 Time: 22:30 Bed 15 Private MD: ED Physician Benjie Ding HPI: 07/09 00:37 This 28 yrs old Female presents to ER via Ambulatory with complaints of tw4 Abdominal Pain. 00:37 The patient presents to the emergency department with diarrhea, abdominal pain. Onset: tw4 The symptoms/episode began/occurred today. Possible causes: unknown. The symptoms are aggravated by nothing. The symptoms are alleviated by nothing. Associated signs and symptoms: The patient has no apparent associated signs or symptoms. Severity of symptoms: At their worst the symptoms were mild in the emergency department the symptoms are unchanged. The patient has not experienced similar symptoms in the past. 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 - Social history:: Smoking status: Patient denies any tobacco usage or history of. ROS: 07/09 00:37 Abdomen/GI: Positive for abdominal pain, diarrhea, abdominal cramps, Negative for tw4 nausea and vomiting, nausea, vomiting, and diarrhea, nausea, vomiting, black/tarry stool, rectal pain, rectal bleeding. 04:47 Constitutional: Negative for fever, chills, and weight loss, Eyes: Negative for injury, tw4 pain, redness, and discharge, ENT: Negative for injury, pain, and discharge, Neck: Negative for injury, pain, and swelling, Cardiovascular: Negative for chest pain, palpitations, and edema, Abdomen/GI: Negative for abdominal pain, nausea, vomiting, diarrhea, and constipation, MS/Extremity: Negative for injury and deformity, Skin: Negative for injury, rash, and discoloration. Exam: 00:37 Head/Face: Normocephalic, atraumatic. ENT: Nares patent. No nasal discharge, no tw4 septal abnormalities noted. Tympanic membranes are normal and external auditory canals are clear. Oropharynx with no redness, swelling, or masses, exudates, or evidence of obstruction, uvula midline. Mucous membranes moist. Chest/axilla: Normal chest wall appearance and motion. Nontender with no deformity. No lesions are appreciated. Respiratory: Lungs have equal breath sounds bilaterally, clear to auscultation and percussion. No rales, rhonchi or wheezes noted. No increased work of breathing, no retractions or nasal flaring. 00:37 MS/ Extremity: Pulses equal, no cyanosis. Neurovascular intact. Full, normal range of motion. Neuro: Awake and alert, GCS 15, oriented to person, place, time, and situation. Cranial nerves II-XII grossly intact. Motor strength 5/5 in all extremities. Sensory grossly intact. Cerebellar exam normal. Normal gait. 00:37 Constitutional: The patient appears in obvious pain. 00:37 Abdomen/GI: Inspection: abdomen appears normal, Bowel sounds: normal, Palpation: moderate abdominal tenderness, in all quadrants. Vital Signs: 07/08 22:37 BP 102 / 79; Pulse 100; Resp 18; Temp 98.4(O); Pulse Ox 99% on R/A; Weight 83.91 kg lp1 (R); Height 5 ft. 3 in. (160.02 cm); Pain 9/10; 22:37 Body Mass Index 32.77 (83.91 kg, 160.02 cm) lp1 MDM: 23:14 Patient medically screened. tw4 07/09 00:37 Differential diagnosis: Nonspecific abd pain, gastritis, cholecystitis, appendicitis. tw4 Data reviewed: vital signs, nurses notes. Data interpreted: Pulse oximetry: Interpretation: normal. Counseling: I had a detailed discussion with the patient and/or guardian regarding: the historical points, exam findings, and any diagnostic results supporting the discharge/admit diagnosis. Special discussion: I discussed with the patient/guardian in detail that at this point there is no indication for admission to the hospital. It is understood, however, that if the symptoms persist or worsen the patient needs to return immediately for re-evaluation. 07/08 22:45 Order name: Basic Metabolic Panel; Complete Time: 23:54 tw4 07/09 00:36 Interpretation: Normal except: K 3.2. [facility] 07/08 22:45 Order name: CBC with Diff; Complete Time: 23:54 [facility] 07/09 00:36 Interpretation: Normal except: BRITTANI% 78.8; LYM% 13.7. [facility] 07/08 22:45 Order name: Creatinine for Radiology; Complete Time: 23:54 [facility] 07/08 22:45 Order name: Hepatic Function; Complete Time: 23:54 [facility] 07/09 00:36 Interpretation: Normal except: GLOB 4.3; A/G 0.8. [facility] 07/08 22:45 Order name: Lipase; Complete Time: 23:54 [facility] 07/09 00:37 Interpretation: Normal except: LIP 69. [facility] 07/08 23:05 Order name: Urine Microscopic Only [facility] 07/08 23:20 Order name: Urine Dipstick--Ancillary (enter results); Complete Time: 00:35 mt 07/09 00:36 Interpretation: Normal except: UBLD TRACE. [facility] 07/08 23:20 Order name: Urine --Ancillary (enter results); Complete Time: 00:35 mt 07/09 00:36 Interpretation: Normal except: USPGR >1.030. [facility] 07/09 00:02 Order name: CDIFF 6 07/09 00:46 Order name: Urine Culture [facility] 07/08 22:45 Order name: IV Saline Lock; Complete Time: 23:03 [facility] 07/08 22:45 Order name: Labs collected and sent; Complete Time: 23:03 [facility] Administered Medications: 07/08 23:15 Drug: LoMOTIL 2 tabs Route: PO; ls4 23:30 Drug: NS 0.9% 1000 ml Route: IV; Rate: 1 bolus; Site: right antecubital; 4 18 00:30 Follow up: IV Status: Completed infusion; IV Intake: 1000ml ls4 00:50 Drug: Potassium Effervescent Tablet 25 mEq Route: PO; ls4 01:24 Follow up: Response: No adverse reaction ls4 01:24 Not Given (Patient Refused): Bentyl 20 mg PO once ls4 Disposition: 07/10/19 00:41 Discharged to Home. Impression: Diarrhea, unspecified, Dehydration. - Condition is Stable. - Discharge Instructions: Food Choices to Help Relieve Diarrhea, Adult, Dehydration, Adult, Diarrhea, Adult. - Prescriptions for Levsin 0.125 mg Oral Tablet - take 1 tablet by ORAL route every 6 hours; 40 tablet. Lomotil 2.5- 0.025 mg Oral Tablet - take 2 tablet by ORAL route once daily As needed; 20 tablet. - Medication Reconciliation Form, Thank You Letter, Antibiotic Education, Prescription Opioid Use form. - Follow up: Private Physician; When: Upon discharge from the Emergency Department; Reason: Recheck today's complaints, Continuance of care, Re-evaluation by your physician. - Problem is new. - Symptoms have improved. Signatures: Dispatcher [employer] EDMS Maria Esther Kapoor RN RN lp1 Benjie Ding MD MD tw4 Jen Sow RN RN ls4 Corrections: (The following items were deleted from the chart) 01:29 00:41 07/10/2019 00:41 Discharged to Home. Impression: Diarrhea, unspecified; lp1 Dehydration. Condition is Stable. Forms are Medication Reconciliation Form, Thank You Letter, Antibiotic Education, Prescription Opioid Use. Follow up: Private Physician; When: Upon discharge from the Emergency Department; Reason: Recheck today's complaints, Continuance of care, Re-evaluation by your physician. Problem is new. Symptoms have improved. tw4
[2019-07-10 00:44] LABS: Urine Bacteria 20-50 /HPF (<20); Urine Mucus 4+ /HPF (NONE SEEN); Urine RBC NONE SEEN /HPF (NONE SEEN)
[2019-07-10] MEDS ORDERED: POTASSIUM 25 MEQ EFFERV TAB ONE (01:13)
[2019-07-10 01:54] VITALS: BP 102/79; TEMP 98.4; O2SAT 99
[2019-07-10 14:11] LABS: C.diff Antigen/Toxin Ag neg : Tox neg (NEG : NEG)
== END 2019-07-10 01:29 | disposition home or self-care (01) ==
LOC: ER 22:00
DX: E86.0 Dehydration (principal); Z88.5 Allergy status to narcotic agent
CPT/HCPCS: 87088; 85025; 87086; 80048; 36415; 81025; 80076; 87324; 83690; 87449; 96360; 99285; J7030; 81003; 81015

== ENCOUNTER 2024-08-30 14:33 | Emergency (ER) | payer OTHER ==
[2024-08-30 15:48] LABS: Specific Gravity 1.007 (1.005-1.030); Sqamous Epithelial <5 /HPF (None Seen); Urine Bacteria <20 /HPF (<20); Urine Bilirubin NEGATIVE (Negative); Urine Blood Negative (Negative); Urine Clarity Turbid (Clear); Urine Color Light-Yellow (Yellow); Urine Culture Reflex Order NOT NEEDED; Urine Glucose NEGATIVE (Negative); Urine Ketones NEGATIVE (Negative); Urine Microscopic Reflex YN ORDER UMIC; Urine Mucus Slight /HPF (None Seen); Urine Nitrite NEGATIVE (Negative); Urine Protein NEGATIVE (Negative); Urine RBC <5 /HPF (None Seen); Urine Urobilinogen Normal (Normal); Urine WBC <5 /HPF (<5); Urine Yeast (Budding) Trace /HPF (None Seen)
[2024-08-30] MEDS ORDERED: NA CHLORIDE 0.9% 1,000 ML ONE (16:08)
[2024-08-30] MEDS ORDERED: KETOROLAC 30 MG/ML INJ ONE (16:08)
[2024-08-30 16:30] LABS: Absolute Basophils 0.1 K/uL (0-0.5); Absolute Eosinophils 0.1 K/uL (0-0.5); Absolute Lymphocytes (CBC) 2.2 K/uL (0.7-4.9); Absolute Monocytes 0.7 K/uL (0.1-1.3); Basophils % 0.5 % (0-1.3); Eosinophils % 1.3 % (0-4.4); Hematocrit 41.8 % (36.0-45.0); Hemoglobin 14.2 g/dL (12.0-15.0); Lymphocytes % 19.9 % (15.3-44.8); MCH 30.2 pg (27.0-35.0); MCV 88.7 fL (80-100); MPV 7.6 fL (7.6-11.3); Monocytes % 6.2 % (3.3-12.3); Neutrophils % 72.1 % (41.7-73.7); Platelets 352 thou/uL (152-406); RBC Red Blood Cell Count 4.71 M/uL (3.86-4.86)
[2024-08-30 16:46] LABS: Anion Gap 9.2 mEq/L (5.0-15.0); Bilirubin Total 0.3 mg/dL (0.2-1.0); Globulin 3.9 g/dL (2.3-3.5); Potassium 4.2 mEq/L (3.5-5.1); Protein, Total 7.9 g/dL (6.4-8.2)
--- NOTE | 2024-08-30 17:57 | EDPHYS ---
Physician Documentation [facility] Name: Margareth Calderón Age: 34 yrs Sex: Female : 1990 Arrival Date: 08/30/2024 Time: 14:33 Bed 11 Private MD: ED Physician Yves Reich HPI: 08/30 15:22 This 34 yrs old Female presents to ER via Ambulatory with complaints of Low ms3 Back Pain, Urinary Problem. 15:22 34-year-old female with past medical history of kidney stones presents to the emergency ms3 department for back pain with dysuria that began yesterday. Patient states she was seen by her primary care physician yesterday and was diagnosed with urinary tract infection. Patient was given a Rocephin injection in the office and a prescription for ciprofloxacin. Patient states her discomfort is an 8/10 located in bilateral flanks. Patient denies any alleviating or inciting factors.. 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 - Infectious Disease History:: Denies. - Social history:: Smoking status: . ROS: 15:22 Constitutional: Negative for fever, and chills. Cardiovascular: Negative for chest ms3 pain, and palpitations. Respiratory: Negative for shortness of breath, cough, wheezing, and pleuritic chest pain, Abdomen/GI: Negative for abdominal pain, nausea, vomiting, diarrhea, and constipation, 15:22 Back: Positive for flank pain, bilaterally, Exam: 15:22 Constitutional: This is a well developed, well nourished patient who is awake, alert, ms3 and in no acute distress. Cardiovascular: Regular rate and rhythm with a normal S1 and S2. No gallops, murmurs, or rubs. Normal PMI, no JVD. No pulse deficits. Respiratory: Lungs have equal breath sounds bilaterally, clear to auscultation and percussion. No rales, rhonchi or wheezes noted. No increased work of breathing, no retractions or nasal flaring. Abdomen/GI: Soft, non-tender, with normal bowel sounds. No distension or tympany. No guarding or rebound. No evidence of tenderness throughout. 15:22 Back: CVA tenderness, that is severe, is noted bilaterally, Vital Signs: 14:49 BP 121 / 86; Pulse 100; Resp 19; Temp 98.9; Pulse Ox 100% ; Weight 70.31 kg; Height 5 iw ft. 3 in. ; Pain 9/10; 16:45 BP 122 / 84; Pulse 96; Resp 20; Pulse Ox 100% on R/A; kj2 18:17 BP 124 / 82; Pulse 90; Resp 20; Temp 97.9; Pulse Ox 100% on R/A; kj2 14:49 Body Mass Index 27.46 (70.31 kg, 160.02 cm) iw 14:49 Pain Scale: Adult iw MDM: 15:11 Medical Screening Exam initiated ms3 15:22 Differential diagnosis: contusion, UTI, Pyelonephritis. ms3 17:54 Data reviewed: vital signs, nurses notes, lab test result(s), radiologic studies, and ms3 as a result, I will discharge patient. I considered the following discharge prescriptions or medication management in the emergency department Medications were administered in the Emergency Department. See MAR. Counseling: I had a detailed discussion with the patient and/or guardian regarding the historical points, exam findings, and any diagnostic results supporting the discharge/admit diagnosis, lab results, radiology results, the need for outpatient follow up, to return to the emergency department if symptoms worsen or persist or if there are any questions or concerns that arise at home. Special discussion: Based on the patient's Hx, exam, and Dx evaluation, there is no indication for emergent surgery or inpatient Tx. It is understood by the patient/guardian that if the Sx's persist or worsen they need to return immediately for re-evaluation. ED course: On reevaluation patient's abdomen benign, patient is alert and orient x 4, no apparent distress, nontoxic-appearing, speaking full sentences. Patient to follow-up with her primary care physician in 2 to 3 days. Patient understands and agrees with plan. All questions were answered. Return precautions discussed include worsening symptoms, or any other concerns. Discussed labs including mildly elevated white blood count. Patient is afebrile with negative urine at this time. CT abdomen pelvis is does not show any acute abnormalities.. 08/30 15:11 Order name: CBC with Diff; Complete Time: 17:48 ms3 08/30 15:11 Order name: CMP; Complete Time: 17:48 ms3 08/30 15:22 Order name: UA Rfx Franki Cult if indicated; Complete Time: 17:48 ms3 08/30 15:11 Order name: CT Abd/Pelvis - Without Contrast ms3 08/30 15:11 Order name: IV Saline Lock; Complete Time: 17:07 ms3 08/30 15:11 Order name: Labs collected and sent; Complete Time: 16:24 ms3 Administered Medications: 16:36 Drug: TORadol - Ketorolac IVP 15 mg IVP once Route: IVP; Site: right antecubital; kj2 18:21 Follow up: Response: No adverse reaction kj2 16:36 Drug: NS 0.9% IV 1000 ml IV at 1 bolus Per protocol; to be given as a bolus over 60 kj2 minutes Route: IV; Rate: 1 bolus; Site: right antecubital; 18:20 Follow up: IV Status: Completed infusion; IV Intake: 1000ml kj2 18:28 Drug: Fluconazole PO 150 mg PO once Route: PO; kj2 18:28 Follow up: Response: Medication administered at discharge. kj2 Disposition Summary: 08/30/24 17:56 Discharge Ordered Notes: Location: Home ms3 Condition: Stable ms3 Diagnosis - Flank pain ms3 - Vulvovaginal candidiasis ms3 Followup: ms3 - With: Private Physician - When: 2 - 3 days - Reason: Recheck today's complaints Discharge Instructions: - Discharge Summary Sheet ms3 - Vaginal Yeast Infection, Adult ms3 - Flank Pain, Adult, [id number] ms3 Forms: - Medication Reconciliation Form ms3 - Antibiotic Education ms3 - Prescription Opioid Use ms3 - Patient Portal Instructions ms3 - Leadership Thank You Letter ms3 Signatures: Dispatcher [employer] Mary Sarmiento, RN Yves Tran DO DO ms3 Jayleen Downey RN RN kj2
--- NOTE | 2024-08-30 17:57 | ER ---
Nurse's Notes [facility] Name: Margareth Calderón Age: 34 yrs Sex: Female : 1990 Arrival Date: 08/30/2024 Time: 14:33 Bed 11 Private MD: Diagnosis: Flank pain;Vulvovaginal candidiasis Presentation: 08/30 14:49 Chief complaint: Patient states: pain with urination and yamileth mid back pain since iw Monday, they did a urine sample and started her on cipro. Coronavirus screen: At this time, the client does not indicate any symptoms associated with coronavirus-19. Ebola Screen: No symptoms or risks identified at this time. Initial Sepsis Screen: Does the patient meet any 2 criteria? No. Patient's initial sepsis screen is negative. Does the patient have a suspected source of infection? No. Patient's initial sepsis screen is negative. Risk Assessment: Do you want to hurt yourself or someone else? Patient reports no desire to harm self or others. Onset of symptoms was August 22, 2024. 14:49 Method Of Arrival: Ambulatory iw 14:49 Acuity: MIRELA 3 iw Triage Assessment: 18:19 General: Behavior is calm, cooperative. 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 - Infectious Disease History:: Denies. - Social history:: Smoking status: . Screenin:45 [facility] ED Fall Risk Assessment (Adult) History of falling in the last 3 months, kj2 including since admission No falls in past 3 months (0 pts) Confusion or Disorientation No (0 pts) Intoxicated or Sedated No (0 pts) Impaired Gait No (0 pts) Mobility Assist Device Used No (0 pt) Altered Elimination No (0 pt) Score/Fall Risk Level 0 - 2 = Low Risk Maintained a safe environment, Hourly rounding (assess needs \T\ fall precautionary measures) done. Abuse screen: Denies threats or abuse. Denies injuries from another. Nutritional screening: No deficits noted. Tuberculosis screening: No symptoms or risk factors identified. Assessment: 15:45 General: Appears in no apparent distress. kj2 15:45 Pain: Complains of pain in low back Pain currently is 8 out of 10 on a pain scale. kj2 Neuro: Level of Consciousness is awake, alert, obeys commands, Oriented to person, place, time, situation. Cardiovascular: Patient's skin is warm and dry. Respiratory: Airway is patent Respiratory effort is even, unlabored. GI: No signs and/or symptoms were reported involving the gastrointestinal system. : No signs and/or symptoms were reported regarding the genitourinary system. 16:45 Reassessment: Patient appears in no apparent distress at this time. Patient and/or kj2 family updated on plan of care and expected duration. Pain level reassessed. Patient is alert, oriented x 3, equal unlabored respirations, skin warm/dry/pink. 17:45 Reassessment: Patient appears in no apparent distress at this time. Patient and/or kj2 family updated on plan of care and expected duration. Pain level reassessed. Patient is alert, oriented x 3, equal unlabored respirations, skin warm/dry/pink. 18:17 Reassessment: Patient appears in no apparent distress at this time. Patient and/or kj2 family updated on plan of care and expected duration. Pain level reassessed. Patient is alert, oriented x 3, equal unlabored respirations, skin warm/dry/pink. Vital Signs: 14:49 BP 121 / 86; Pulse 100; Resp 19; Temp 98.9; Pulse Ox 100% ; Weight 70.31 kg; Height 5 iw ft. 3 in. ; Pain 9/10; 16:45 BP 122 / 84; Pulse 96; Resp 20; Pulse Ox 100% on R/A; kj2 18:17 BP 124 / 82; Pulse 90; Resp 20; Temp 97.9; Pulse Ox 100% on R/A; kj2 14:49 Body Mass Index 27.46 (70.31 kg, 160.02 cm) iw 14:49 Pain Scale: Adult iw ED Course: 14:36 Patient arrived in ED. im 14:36 Yves Reich DO is Attending Physician. ms3 14:45 Patient has correct armband on for positive identification. Bed in low position. Call kj2 light in reach. Provided Education on: call light. 14:51 Triage completed. iw 14:51 Arm band placed on. iw 15:32 CT Abd/Pelvis - Without Contrast In Process Unspecified. EDMS 15:44 UA Rfx Franki Cult if indicated Sent. iw 15:58 Jayleen Downey, RN is Primary Nurse. kj2 16:24 Missed attempt(s): 20 gauge in left antecubital area. kj2 16:36 Inserted saline lock: 20 gauge in right antecubital area, using aseptic technique. kj2 Blood collected. Flushed with 10 mL NS. 18:18 No provider procedures requiring assistance completed. IV discontinued, intact, kj2 bleeding controlled, No redness/swelling at site. Pressure dressing applied. Administered Medications: 16:36 Drug: TORadol - Ketorolac IVP 15 mg IVP once Route: IVP; Site: right antecubital; kj2 18:21 Follow up: Response: No adverse reaction kj2 16:36 Drug: NS 0.9% IV 1000 ml IV at 1 bolus Per protocol; to be given as a bolus over 60 kj2 minutes Route: IV; Rate: 1 bolus; Site: right antecubital; 18:20 Follow up: IV Status: Completed infusion; IV Intake: 1000ml kj2 18:28 Drug: Fluconazole PO 150 mg PO once Route: PO; kj2 18:28 Follow up: Response: Medication administered at discharge. kj2 Medication: 17:06 VIS not applicable for this client. kj2 Intake: 18:20 IV: 1000ml; Total: 1000ml. kj2 Outcome: 17:56 Discharge ordered by MD. ms3 18:19 Discharged to home ambulatory, with family, kj2 18:19 Condition: stable 18:19 Discharge instructions given to patient, family, Instructed on discharge instructions, follow up and referral plans. Demonstrated understanding of instructions, follow-up care, 18:29 Patient left the ED. kj2 Signatures: Dispatcher [employer] EDMary Powell, RN RN iw Yves Reich DO DO ms3 Colleen Mack Krystal, RN RN kj2 Corrections: (The following items were deleted from the chart) 15:44 14:49 BP 121 / 86; Pulse 100bpm; Resp 19bpm; Pulse Ox 100%; 70.31 kg; Height 5 ft. 3 iw in.; BMI: 27.4; Pain 9/10, Adult; iw
[2024-08-30] MEDS ORDERED: FLUCONAZOLE 100 MG TAB ONE (18:23)
[2024-08-30 18:45] VITALS: O2SAT 100
[2024-08-30 18:52] VITALS: BP 124/82; TEMP 97.9
--- NOTE | 2024-08-30 22:00 | RAD REPORT ---
EXAMINATION: CT ABDOMEN AND PELVIS WITHOUT CONTRAST CLINICAL INDICATION: left flank pain TECHNIQUE: CT abdomen and pelvis was performed, without IV contrast, as per department protocol. Axia l, sagittal and coronal reconstructions were obtained. One or more of the following dose reduction techniques were used: Automated exposure control, adjustment of the mA and kV according to the patien t size, and iterative reconstruction. Unless otherwise specified, incidental findings do not require dedicated imaging follow-up. COMPARISON: 2020 FINDINGS: The lack of intravenous contrast limits the sensitivity of this exam for evaluation of solid visceral organs, vascular structures, and retroperitoneum. LOWER CHEST: The visualized lung bases are clear. LIVER: ormal in size and contour. No focal lesion. Cholecystectomy clips. SPLEEN: Normal size. No focal lesion. PANCREAS: No mass, ductal dilation, or jorge-pancreatic fluid. ADRENALS: Normal; no mass. KIDNEYS AND URETERS: Normal size and contour. No hydronephrosis. URINARY BLADDER: Normal contour. GASTROINTESTINAL TRACT: No evidence of bowel obstruction, significant free fluid, free air or abscess . APPENDIX: Normal appendix. LYMPH NODES: No lymphadenopathy. MUSCULOSKELETAL: Mild multilevel spinal degenerative changes. ADDITIONAL FINDINGS: Fluid density lesion anterior to the IVC again seen slightly larger measuring 4. 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 It does not have aggressive features. IMPRESSION: No acute abnormalities in the abdomen or pelvis, with evaluation limited by lack of IV contrast. Electronically signed by: Omid Padgett MD 08/30/2024 03:45 PM CDT Due to temporary technical issues with the PACS/[employer] reporting system, reports are being pepito d by the in-house radiologist without review as a courtesy to ensure prompt reporting the interpreting radiologist is fully responsible for the content of the report. Transcribed Date/Time: 08/30/2024 9:59 PM
== END 2024-08-30 18:29 | disposition home or self-care (01) ==
LOC: ER 14:33
DX: B37.31 Acute candidiasis of vulva and vagina (principal); Z87.442 Personal history of urinary calculi
CPT/HCPCS: 96361; 85025; 81001; 36415; 80053; 74176; 96374; 99284; J7030